=== PATIENT | male | born 1975 | race Caucasian/White ===

== ENCOUNTER 2017-11-21 07:59 | Outpatient (CLI) | payer BC, SELFPAY ==
[2017-11-21 10:34] LABS: Ferritin 115 ng/mL (8-388)
== END 2017-11-21 08:19 ==
PROVIDERS: PCP Emergency Medicine; Visit Provider Emergency Medicine
DX: E83.10 Disorder of iron metabolism, unspecified (principal)
CPT/HCPCS: 36415; 82728

== ENCOUNTER 2018-05-01 08:03 | Outpatient (CLI) | payer BC, SELFPAY ==
[2018-05-01 09:55] LABS: Ferritin 86 ng/mL (8-388)
== END 2018-05-01 08:23 ==
LOC: LBO 08:07 → LOS 14:55
PROVIDERS: PCP Emergency Medicine; Visit Provider Emergency Medicine
DX: E83.19 Other disorders of iron metabolism (principal)
CPT/HCPCS: 36415; 82728

== ENCOUNTER 2018-09-18 08:29 | Outpatient (CLI) | payer BC, SELFPAY ==
[2018-09-18 12:29] LABS: Ferritin 123 ng/mL (8-388)
== END 2018-09-18 08:49 ==
PROVIDERS: PCP Emergency Medicine; Visit Provider Emergency Medicine
DX: E83.118 Other hemochromatosis (principal)
CPT/HCPCS: 36415; 82728

== ENCOUNTER 2018-12-17 10:21 | Outpatient (CLI) | payer BC, SELFPAY ==
[2018-12-17 13:45] LABS: Ferritin 83 ng/mL (8-388)
== END 2018-12-17 10:41 ==
PROVIDERS: PCP Emergency Medicine; Visit Provider Emergency Medicine
DX: E83.19 Other disorders of iron metabolism (principal)
CPT/HCPCS: 36415; 82728

== ENCOUNTER 2019-04-29 11:26 | Outpatient (CLI) | payer BC, SELFPAY ==
[2019-04-29 13:53] LABS: Ferritin 107 ng/mL (26-388)
== END 2019-04-29 11:46 ==
PROVIDERS: PCP Emergency Medicine; Visit Provider Emergency Medicine
DX: E83.10 Disorder of iron metabolism, unspecified (principal)
CPT/HCPCS: 36415; 82728

== ENCOUNTER 2019-12-19 02:38 | Outpatient (CLI) | payer BC, SELFPAY ==
[2019-12-19 13:52] LABS: Ferritin 98 ng/mL (26-388)
== END 2019-12-19 02:58 ==
PROVIDERS: PCP Emergency Medicine; Visit Provider Emergency Medicine
DX: E83.10 Disorder of iron metabolism, unspecified (principal)
CPT/HCPCS: 36415; 82728

== ENCOUNTER 2020-01-29 11:08 | Outpatient (CLI) | payer BC, SELFPAY ==
[2020-02-01 13:52] LABS: Patient Race White; SARS-CoV-2 RNA Undetected (Undetected); SARS-CoV-2 Specimen Source Nasal
== END 2020-01-29 11:28 ==
PROVIDERS: PCP Emergency Medicine; Visit Provider Emergency Medicine
DX: J02.9 Acute pharyngitis, unspecified (principal); M79.18 Myalgia, other site
CPT/HCPCS: U0003

== ENCOUNTER 2020-06-03 03:40 | Outpatient (CLI) | payer BC, SELFPAY ==
[2020-06-03 13:08] LABS: Ferritin 107 ng/mL (26-388)
== END 2020-06-03 03:41 | disposition home or self-care (01) ==
LOC: LBO 03:40
PROVIDERS: PCP Emergency Medicine; Visit Provider Emergency Medicine
DX: E83.10 Disorder of iron metabolism, unspecified (principal)
CPT/HCPCS: 36415; 82728

== ENCOUNTER 2020-11-19 03:02 | Outpatient (CLI) | payer BC, SELFPAY ==
[2020-11-19 10:46] LABS: Ferritin 120 ng/mL (26-388)
== END 2020-11-19 03:03 | disposition home or self-care (01) ==
LOC: LBO 03:02
PROVIDERS: PCP Emergency Medicine; Visit Provider Emergency Medicine
DX: E83.118 Other hemochromatosis; E83.10 Disorder of iron metabolism, unspecified
CPT/HCPCS: 36415; 82728

== ENCOUNTER 2021-01-14 02:23 | Outpatient (CLI) | payer BC, SELFPAY ==
[2021-01-14 15:28] LABS: Ferritin 75 ng/mL (26-388)
== END 2021-01-14 02:24 | disposition home or self-care (01) ==
LOC: LBO 02:23
PROVIDERS: PCP Emergency Medicine; Visit Provider Emergency Medicine
DX: E83.10 Disorder of iron metabolism, unspecified (principal)
CPT/HCPCS: 36415; 82728

== ENCOUNTER 2021-04-02 04:40 | Outpatient (CLI) | payer BC, SELFPAY ==
[2021-04-02 12:17] LABS: Ferritin 94 ng/mL (26-388)
== END 2021-04-02 04:41 | disposition home or self-care (01) ==
LOC: LBO 04:41
PROVIDERS: PCP Emergency Medicine; Visit Provider Emergency Medicine
DX: E83.118 Other hemochromatosis (principal)
CPT/HCPCS: 36415; 82728

== ENCOUNTER 2021-09-03 03:19 | Outpatient (CLI) | payer BC, SELFPAY ==
--- OUTSIDE RECORDS SUMMARY | 2021-09-03 03:24 | XMS_ITS | Encounter Summary ---
:1975 Author Organization [facility] [place] [address] Care Team Providers Name Role Phone AkiraHarshad everett Primary Care Provider Reason for Visit Reason Comments Schedule Office Case Encounter Details Date Type Department Care Team Description 04/26/2012 Office Visit Hematology and Liam Malin Hemochro matosis (Primary Oncology at [facility] Dx) Formerly [facility] [address] [place] H[place]ATOLOGY/ONCOLO [id number] GY-COAGULATION [phone] DEPT. [place], [place] [address] Social History Tobacco Use Types Packs/Day Years Used Date Never Smoker Sex Assigned at Date Recorded Not on file documented as of this encounter Last Filed Vital Signs Vital Sign Reading Time Taken Comments Blood Pressure 128/85 04/26/2012 10:34 AM EST Pulse 55 04/26/2012 10:34 AM EST Temperature 36.6 ??C (97.9 ??F) 04/26/2012 10:34 AM EST Respiratory Rate 16 04/26/2012 10:34 AM EST Oxygen Saturation 100% 04/26/2012 10:34 AM EST Inhaled Oxygen Concentration - - Weight 77.5 kg (170 lb 13.7 oz) 04/26/2012 10:34 AM EST Height 172.7 cm (5' 7.99) 04/26/2012 10:34 AM EST Body Mass Index 25.98 04/26/2012 10:34 AM EST documented in this encounter Patient Instructions Patient InstructionsLiam Malin MD - 04/26/2012 12:34 PM EST Your ferritin at home on April 04, 2012 was 436.It is highly likely, especially with your family history, that you have one or two genes for hemochromatosis.Today we will re-check you ferritin and iron levels, your blood counts and run the test for the hemochromatosis gene. You and Dr Champion will get a letter with the results. You should contact Dr Champion about getting started on phlebotomies. I suggest having one unit remover about once per week for 5 weeks. Removal of one unit should drop the ferritin by about 50, so removing 5 units should drop the level by about 250 resulting in a ferritin of about 186. This does notneed to be measured. Rather, have a repeat ferritin in about 3 months to see where you are. Have more phlebotomies so that the resulting ferritin falls between about 25 and 75 (about 50 average) which is the minimal risk range. See if Dr Champion will put a standing order in for a ferritin thereafter. Keep a diary of phlebotomies and ferritin levels. Keep the handouts from today for future reference. Practice the iron restricted diet. We can see youhere in about 6 months to see how things are going.An order will be in for a ferritin, so please tryto arrive about 2 hours before the appointment to have the ferritin done for discussion at your appointment. 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 Harshad Champion of [facility] for evaluation for hemochromatosis. Adam appeared in Dr. Champion's office for a general checkup and nonspecific complaints and mentioned that he has a positive family history for hemochromatosis. His paternal grandfather is said to have had this diagnosis made and to have had diabetes. He at an unknown age after a fall down stairs that resulted in a lower extremity fracture that he did not survive, having suddenly. His father is alive and had a diagnosis of hemochromatosis made four or five years ago. He was told that he is a carrier by which Adam understands that he has one gene. His paternal aunt and her son (his cousin) are also described as having hemochromatosis, and his cousin is undergoing weekly blood draws at this time. Adam basically feels well. He was provided with a number of handouts, one of which was a list of clinical manifestations of hemochromatosis. He has none of these at this time. His body mass index today is 26, and his blood pressure is 128/85. He takes no medications. 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 He has never been contacted about any abnormality that might have existed over the past years. He has a drink of alcohol about once or twice a week. He has never been a blood donor or had a blood transfusion. He and his have cast iron cookware, but they use them only occasionally. He has been a daily multivitamin taker in the past, but this has been intermittent and he has not taken vitamins recently. He states that when he did take vitamins they were for men. He has red meat on average three to four times per week. He loves shellfish and especially muscles. He has a 2-year-old son whom he is concerned about because of the possibility of genetic transmission. Based upon his family history, Adam had blood testing at home dated April 04, 2012. His ferritin was 436, and his transferrin was 35% saturated. His serum iron was normal at 86. I spent 70 minutes with the patient, all of which was in consultation. During this time, we reviewed clinical manifestations of hemochromatosis, none of which he has. We reviewed curves showing the population trends in serum ferritin levels by age and sex. His ferritin of 436 would be about two and a half times higher than the population mean for males of his age. We reviewed the potential genotypes and what their significance might be. His hemochromatosis genotype will be determined based on blood testing today. We will also perform a confirmatory ferritin, serum iron and total iron-binding capacity, and CBC. The assumption is that he has not had abnormal liver function in the past that may warrant evaluation for other diseases, such as hepatitis or fatty liver disease. We reviewed the iron-restricted diet, which is based upon the Mediterranean diet. He was given a publication that illustrates the ability of the iron-restricted diet to control ferritin levels in the lower range associated with improved outcomes in diabetics with marginal renal function. This paper was given to illustrate the value of the diet for the years to come. This concept was emphasized, and the purpose of testing and proceeding with treatment based on today's visit was discussed. The idea of long-term disease prevention was emphasized. We discussed the fact the removal of 1 unit of blood should reduce the ferritin by about 50. He was advised to contact Dr. Champion's office upon return home and to proceed with 1 unit phlebectomies times five for starters. This should drop his ferritin into the range of approximately 186. He should have a ferritin performed at home in three months to determine his steady state and then to have additional phlebotomies as necessary to drop his ferritin by decrements of 50 to arrive at a mila ferritin of between 25 and 75. This would establish an optimal baseline level. We discussed the concept of self care in the future. He was asked to transmit the name of the try out person at the hospital in [facility] who might be performing his therapeutic phlebotomies. 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 The goal is to minimize iron intake and to settle upon the longest interval between therapeutic phlebotomies as possible. The emphasis was on the fact that his current state of well being is susceptible to preservation over the decades ahead. I mentioned to Adam that the letter from this visit may be delayed by as much as two weeks. Communication will eventually be with Dr. Champion and with Adam. We also discussed the need for testing in his son. He would be advised to avoid vitamins with iron at this time and to simply ingest a normal diet consisting of solids. His son was nursed for about 10 months following but is otherwise an active, healthy 2-year-old. Genetic testing can be deferred until some future date at such a time as a blood test is being drawn. documented in this encounter Plan of Treatment Not on filedocumented as of this encounter Procedures Procedure Name Priority Date/Time Associated Diagnosis Comme nts HFE MUT Routine 04/26/2012 1:04 PM Hemochromatosis Result s for this EST procedure are i n the results section. HFE MUTATION Routine 04/26/2012 1:04 PM Hemochromatosis EST DIFFERENTIAL, Routine 04/26/2012 1:04 PM Results for this AUTOMATED EST procedure are i n the results section. IRON AND TIBC Routine 04/26/2012 1:04 PM Hemochromatosis Resul ts for this EST procedure are i n the results section. CBC (WITH DIFF) Routine 04/26/2012 1:04 PM Hemochromatosis Res ults for this EST procedure are i n the results section. FERRITIN Routine 04/26/2012 1:04 PM Hemochromatosis Result s for this EST procedure are i n the results section. documented in this encounter Results Differential, Automated (04/26/2012 1:04 PM EST) P athologist Signature Neutrophils % 64.6 34.0 - CERNER 71.0 % MILLENNIUM Neutr Abs (ANC) 3.71 1.50 - CERNER 6.30 MILLENNIUM x10(3)/mcL Lymphocytes % 28.7 19.0 - CERNER 53.0 % MILLENNIUM Lymphocytes Abs 1.6 1.0 - 3.6 CERNER x10(3)/mcL MILLENNIUM Monocytes % 5.2 4.0 - 13.0 CERNER % MILLENNIUM Monocyte Abs 0.3 0.2 - 1.0 CERNER x10(3)/mcL MILLENNIUM Eosinophils % 1.2 0.0 - 7.0 CERNER % MILLENNIUM Eosinophils Abs 0.1 0.0 - 0.5 CERNER x10(3)/mcL MILLENNIUM Basophils % 0.3 0.0 - 2.0 CERNER % MILLENNIUM Basophils Abs 0.0 0.0 - 0.2 CERNER x10(3)/mcL MILLENNIUM Immature Gran % 0.00 0.00 - CERNER 0.66 % MILLENNIUM Comment: Immature granulocytes(IG's)percentage an d absolute count will include metamyelocytes, myelocytes, and promyelo cytes. Blood smears from CBCs yielding IG's will be scanned manually for concor dance. If this scan disagrees with the automated IG or if promyelocytes are not ed, a manual differential will be performed. Serenity Gran Abs 0.00 0.00 - 0.05 x10(3)/mcL CER NER MILLENNIUM Specimen Anatomical Collection Method Collection Time Receive d Time (Source) Location / / Volume Laterality Blood specimen 04/26/2012 1:04 PM 013 1:17 (specimen) EST PM EST Liam Malin MD HEMATOLOGY ORDERABLES Performing Organization Address City/State/ZIP [place] [address] GEMA GUTIERREZ HFE Mut (04/26/2012 1:04 PM EST) Component Value Ref Test Analysis Performed At [facility] gist Range Method Time Signature HFE Mutation RESULTS: ??NEGATIVE FOR BOTH THE C282Y AND H63D HFE ??MUTATIONS. ??Although this GEMA patient does not carry these mutations on either of his ch romosomes 6, this MILLENNIUM does NOT rule out hereditary hemochromatosis (see COMMENT). COMMENT: In the study by Tab et al. (A novel MHC class I-l damian gene in patients with hereditary hae mochromatosis. ??Nature Genetics 1996;13: 399-408), 83% of unrelated individuals with hereditary hemochromatosis (HH) were homozygous for the C282Y mut ation, ??5% were C282Y/H63D compound heterozygotes, and less than 1% ??were hete rozygous for the C282Y mutation only. ??Other studies have confirmed the high incidence of these mutations i n individuals with HH. Neither of these HFE ??mutations [facility] of individuals with hemochromatosis. This test provides information on the genetic basis for iron overload by detecting two missense mutat ions, C282Y and H63D, that occur commonly in Type I hereditary hemochromatosis (HFe). The gene frequency for C28 2Y and H63D is about 5 to 10%. Homozygosity, double heterozygosity, or hete rozygosity for these mutations account for about 70% to 80% of cases of classical HFe. These mutations cause graded severity of iron accumulation with ho mozygosity for C282Y being the strongest and heterozygosity for H63D the we akest. Other mutations, non-genetic iron excess and various pathophysiolo gic conditions interact with genotype to alter clinical disease phenotype. Disease-producing iron overload can occur with any genotype depend ing on the level and duration of iron exposure, and interacting variables (Damion shelby G. Genetic mechanisms and modifying factors in hereditary hemochro matosis. Fabiana Rev Gastroenterol Hepatol 2010;7:50-58). Genetic kellee sis assists diagnosis when expression of a clinical phenotype possibly due to excess iron is incomplete, for pre dicting future disease risk (e.g., in family members) or for explaining e levated levels of ferritin or % transferrin saturation. Referral is suggested for detailed clinico-pathologic correlation. METHOD: The regions of interest in the HFE gene (C282Y and H63D) are analyzed using [employer] pre -developed assays for SNP detection on an ANTONIO Prism 7500 Sequence Detection System. DNA is isolated from periphe ral blood and analyzed using primers and probes specific to the wild type and mutant sequences of each gene sequence of interest (C282Y and H63D) . This assay was performed usi ng analyte specific reagents which are regulated by the U.S. Food and Drug Administration. This test was develop ed and its performance characteristics determined by the Molecular Pathology Laboratory at [facility]. This test is used for clinical purposes an d should not be considered as investigational or for resea uk healthcare purposes. ??It has not been cleared or approved by the U.S. Food and Drug Administration. However, as a [employer] licensed laboratory, our facility is approved for such high complexity clinical testing. Comment: [VERIFIED DATE]05.05.12 Verified By:Concha Taveras MD Pathologist (Electronic Signature) Specimen Anatomical Collection Method Collection Time Receive d Time (Source) Location / / Volume Laterality Blood specimen 04/26/2012 1:04 PM 013 2:16 (specimen) EST PM EST Resulting Agency Comment Spec In Lab Liam Malin MD HEMATOLOGY ORDERABLES Performing Organization Address City/State/ZIP [place] [address] CERNER MILLENNIUM (ABNORMAL) CBC (with Diff) (04/26/2012 1:04 PM EST) athologist Signature WBC 5.8 4.0 - 10.0 CERNER x10(3)/mcL MILLENNIUM RBC 5.58 4.63 - 6.08 CERNER x10(6)/mcL MILLENNIUM Hemoglobin 16.4 13.7 - 17.5 CERNER gm/dL MILLENNIUM Hematocrit 47.0 40.0 - 51.0 CERNER % MILLENNIUM MCV 84.2 79.0 - 92.0 CERNER fL MILLENNIUM MCH 29.4 25.6 - 32.2 CERNER pg MILLENNIUM MCHC 34.9 32.0 - 36.5 CERNER gm/dL MILLENNIUM Platelets 116 (L) 145 - 370 CERNER x10(3)/mcL MILLENNIUM RDWSD 38.3 35.0 - 46.0 CERNER fL MILLENNIUM RDWCV 12.7 10.9 - 14.4 CERNER % MILLENNIUM MPV 10.1 9.0 - 12.0 CERNER fL MILLENNIUM Specimen Anatomical Collection Method Collection Time Receive d Time (Source) Location / / Volume Laterality Blood specimen 04/26/2012 1:04 PM 013 1:17 (specimen) EST PM EST Resulting Agency Comment Spec In Lab Liam Malin MD HEMATOLOGY ORDERABLES Performing Organization Address City/[facility]/ZIP Code Phon e Number [address] CERNER MILLENNIUM Iron and TIBC (04/26/2012 1:04 PM EST) athologist Signature Iron 62 45 - 160 CERNER mcg/dL MILLENNIUM TIBC 278 250 - 450 CERNER mcg/dL MILLENNIUM Iron Saturation 22 20 - 50 % CERNER MILLENNIUM Specimen Anatomical Collection Method Collection Time Receive d Time (Source) Location / / Volume Laterality Blood specimen 04/26/2012 1:04 PM 013 1:17 (specimen) EST PM EST Resulting Agency Comment Spec In Lab Liam Malin MD CHEMISTRY ORDERABLES Performing Organization Address City/[facility]/ZIP [facility] Phon e Number [address] CERNER MILLENNIUM (ABNORMAL) Ferritin (04/26/2012 1:04 PM EST) athologist Signature Ferritin 441 (H) 30 - 400 CERNER ng/mL MILLENNIUM Comment: Pediatric reference ranges not verified at [facility], interpret with caution. Reference ranges for females greater hugh n 50 years of age approach values for men, i.e., 30-400 ng/mL. Specimen Anatomical Collection Method Collection Time Receive d Time (Source) Location / / Volume Laterality Blood specimen 04/26/2012 1:04 PM 013 1:17 (specimen) EST PM EST Resulting Agency Comment Spec In Lab Liam Malin MD CHEMISTRY ORDERABLES Performing Organization Address City/State/[place] [address] [facility] documented in this encounter Visit Diagnoses Diagnosis Hemochromatosis - Primary Other hemochromatosis documented in this encounter Care Teams Forest Science Professor Relationship Specialty Start Date End Date Harshad Champion DO PCP - General 04/26/[address] [place] [address] documented as of this encounter
--- OUTSIDE RECORDS SUMMARY | 2021-09-03 03:24 | XMS_ITS | Clinical Summary ---
:1975 Author Organization [facility] [place] [address] Care Team Providers Name Role Phone Harshad Champion DO Primary Care Provider Allergies No known active allergies Medications No known medications Active Problems Problem Noted Date Hemochromatosis 04/26/2012 Social History Tobacco Use Types Packs/Day Years Used Date Never Smoker Sex Assigned at Date Recorded Not on file Last Filed Vital Signs Vital Sign Reading [...] Mass Index 25.98 04/26/2012 10:34 AM EST Plan of Treatment Health Maintenance Due Date Last Done Comments Covid-19 Vaccine (#1) 1978 HIV screen 1991 Hepatitis C Screening 1991 Lipid Screening 1991 Tdap adult 1992 Tetanus vaccine 1992 Colonoscopy 2018 Influenza (Flu) vaccine (1 of - Influenza standard 11/04/2020 series) Care Teams Aix Architect Relationship Specialty Start Date End Date Harshad Champion DO PCP - General 04/26/[address] [place] [address]
--- OUTSIDE RECORDS SUMMARY | 2021-09-03 03:24 | XMS_ITS | Encounter Summary ---
:1975 Author Organization [facility] [place] [address] Care Team Providers Name Role Phone Harshad Champion DO Primary Care Provider Encounter Details Date Type Department Care Team Description 05/09/2012 Orders Only Hematology and Liam Malin R, Iron ove rload (Primary Oncology at [facility] Dx) [facility] [place] [address] HEMATOLOGY/ONCOLOG [phone] Y-COAGULATION DEPT. [place], [place] [address] Social History Tobacco Use Types Packs/Day Years Used Date Never Smoker Sex Assigned at Date Recorded Not on file documented as of this encounter Plan of Treatment Not on filedocumented as of this encounter Visit Diagnoses Diagnosis Iron overload - Primary Other disorders of iron metabolism documented in this encounter Care Teams Musical Engineer Relationship Specialty Start Date End Date Harshad Champion DO PCP - General 04/26/[address] [place] [address] documented as of this encounter
[2021-09-03 14:28] LABS: Ferritin 110 ng/mL (26-388)
== END 2021-09-03 03:20 | disposition home or self-care (01) ==
LOC: LBO 03:19
PROVIDERS: PCP Nurse Practitioner Family; Visit Provider Emergency Medicine
DX: E83.118 Other hemochromatosis (principal)
CPT/HCPCS: 36415; 82728

== ENCOUNTER 2022-03-02 02:38 | Outpatient (CLI) | payer BC, SELFPAY ==
[2022-03-02 14:56] LABS: HCT 44.9 % (40.0-50.0); HGB 15.4 g/dL (13.5-17.5); MCH 28.3 pg (27.0-33.0); MCHC 34.3 % (32.0-36.0); MCV 83 fL (80-95); MPV 9.1 fL (8.0-11.0); Platelet Count 163 10^3/uL (130-400); RBC 5.44 10^6/uL (4.36-5.78); RDW 12.6 % (11.8-14.1); RDW-SD 37.8 fL; WBC 5.87 10^3/uL (4.4-10.8)
[2022-03-02 15:48] LABS: Ferritin 113 ng/mL (26-388)
== END 2022-03-02 02:39 | disposition home or self-care (01) ==
LOC: LBO 02:38
PROVIDERS: PCP Nurse Practitioner Family; Visit Provider Nurse Practitioner Family
DX: E83.118 Other hemochromatosis (principal)
CPT/HCPCS: 36415; 85027; 82728

== ENCOUNTER 2022-07-07 01:41 | Outpatient (CLI) | payer BC, SELFPAY ==
[2022-07-07 15:07] LABS: Ferritin 180 ng/mL (26-388)
== END 2022-07-07 01:42 | disposition home or self-care (01) ==
PROVIDERS: PCP Nurse Practitioner Family; Visit Provider Nurse Practitioner Family
DX: E83.118 Other hemochromatosis (principal)
CPT/HCPCS: 36415; 82728

== ENCOUNTER 2022-08-09 03:12 | Outpatient (CLI) | payer BC, SELFPAY ==
[2022-08-09 15:23] LABS: Abs Immature Grans 0.02 10^3/uL (0.0-0.06); Absolute Basophil Count 0.04 10^3/uL (0.0-0.2); Absolute Eosinophil Count 0.15 10^3/uL (0.0-0.7); Absolute Lymphocyte Count 1.56 10^3/uL (1.2-3.4); Absolute Monocyte Count 0.35 10^3/uL (0.1-0.8); Absolute Neutrophil Count 3.51 10^3/uL (1.2-6.7); Basophils % 0.7; Eosinophils % 2.7; HCT 42.7 % (40.0-50.0); HGB 14.9 g/dL (13.5-17.5); Immature Grans % 0.4; Lymphocytes % 27.7; MCH 28.8 pg (27.0-33.0); MCHC 34.9 % (32.0-36.0); MCV 82 fL (80-95); MPV 9.3 fL (8.0-11.0); Monocytes % 6.2; Neutrophils % 62.3; Platelet Count 150 10^3/uL (130-400); RBC 5.18 10^6/uL (4.36-5.78); RDW 12.5 % (11.8-14.1); RDW-SD 37.8 fL; WBC 5.63 10^3/uL (4.4-10.8)
[2022-08-09 16:20] LABS: Iron 52 ug/dL (65-175); Total Iron Binding Capacity 288 ug/dL (250-450)
[2022-08-09 16:33] LABS: Calculated LDL 120 mg/dL (<100); Cholesterol 222 mg/dL (<200); Ferritin 149 ng/mL (26-388); HDL Cholesterol 42 mg/dL (40-60); Triglyceride 303 mg/dL (<150)
[2022-08-11 11:35] LABS: Transferrin 227 mg/dL (201-352)
== END 2022-08-09 03:13 | disposition home or self-care (01) ==
PROVIDERS: PCP Nurse Practitioner Family; Visit Provider Nurse Practitioner Family
DX: E83.118 Other hemochromatosis (principal); Z13.220 Encounter for screening for lipoid disorders
CPT/HCPCS: 36415; 80061; 82728; 83540; 83550; 84466; 85025

== ENCOUNTER 2022-12-12 05:05 | Outpatient (CLI) | payer BC, SELFPAY ==
[2022-12-12 16:28] LABS: HCT 42.4 % (40.0-50.0); HGB 14.8 g/dL (13.5-17.5); MCH 28.2 pg (27.0-33.0); MCHC 34.9 % (32.0-36.0); MCV 81 fL (80-95); MPV 9.4 fL (8.0-11.0); Platelet Count 161 10^3/uL (130-400); RBC 5.24 10^6/uL (4.36-5.78); RDW 12.7 % (11.8-14.1); RDW-SD 37.1 fL; WBC 6.08 10^3/uL (4.4-10.8)
[2022-12-12 17:30] LABS: Ferritin 163 ng/mL (26-388)
== END 2022-12-12 05:06 | disposition home or self-care (01) ==
PROVIDERS: PCP Nurse Practitioner Family; Visit Provider Nurse Practitioner Family
DX: E83.118 Other hemochromatosis (principal)
CPT/HCPCS: 36415; 85027; 82728

== ENCOUNTER 2023-01-12 02:21 | Outpatient (CLI) | payer BC, SELFPAY | END 2023-01-12 02:22 | disposition home or self-care (01) | LOC: LBO 02:21 | PROVIDERS: PCP Nurse Practitioner Family; Visit Provider Nurse Practitioner Family | DX: R53.83 Other fatigue (principal) | CPT/HCPCS: 36415; 84443 ==

== ENCOUNTER 2023-03-31 02:01 | Outpatient (CLI) | payer BC, SELFPAY ==
[2023-03-31 10:15] LABS: Calculated LDL 122 mg/dL (<100); Cholesterol 197 mg/dL (<200); Ferritin 167 ng/mL (26-388); HDL Cholesterol 52 mg/dL (40-60); Triglyceride 117 mg/dL (<150)
== END 2023-03-31 02:02 | disposition home or self-care (01) ==
LOC: LBO 02:01
PROVIDERS: PCP Nurse Practitioner Family; Visit Provider Nurse Practitioner Family
DX: E78.5 Hyperlipidemia, unspecified (principal); E83.118 Other hemochromatosis
CPT/HCPCS: 36415; 80061; 82728

== ENCOUNTER 2023-05-26 08:42 | Day surgery (SDC) | payer BC, SELFPAY ==
--- NOTE | 2023-05-25 19:27 | W.PM.DSUDISC ---
Date of service: 05/26/23 Time of Service: 12:30 Discharge Plan Disposition Patient Disposition: Home Condition: Good Discharge Details Reason For Visit: screening colonoscopy Attending Provider: Silvestre Torres Primary Care Provider: Constantino Rodriguez Home Meds and New Rx's Prescriptions: Continued albuterol sulfate 90 mcg/actuation HFA aerosol inhaler 2 inh inhalation Q6H Qty: 18 0RF (DME) Aerochamber MV Spacer See Rx Instructions .Route Qty: 1 0RF Rx Instructions: As directed ibuprofen [Motrin IB] 200 MG tablet 1 tab PO Q4H PRN losartan 50 mg tablet 50 mg PO DAILY Qty: 90 3RF sertraline 100 mg tablet 100 mg PO DAILY Qty: 90 3RF Discontinued bisacodyl [Dulcolax (bisacodyl)] 5 mg tablet,delayed release (DR/EC) 5 mg PO ONCE Qty: 4 0RF Rx Instructions: Colonoscopy Bowel Prep- Per Instructions polyethylene glycol 3350 17 gram/dose powder 238 g PO ONCE Qty: 238 0RF Rx Instructions: Colonoscopy Bowel Prep- Per Instructions Discharge Instructions Instructions: Colorectal Polyps (GEN) Additional Instructions: Adam, we were able to complete your colonoscopy today without any difficulty. Your prep was excellent, and I could see everything just fine. They did remove 2 small areas that I suspect may be polyps. I will have the sent off for testing. Once I have that report, I will be in touch with my recommendations for your next colonoscopy. Hopefully I am wrong, and knees are just normal tissue, in which case it would be a 10-year follow-up. If you have any questions at all in the meantime, please do not hesitate to ask at any point. 1. If tolerated, consume a soft, low fiber diet for 1-2 days. [address] Do not drive, drink alcohol, operate machinery, make critical decisions, or do activities that require coordination or balance for 24 hours. 3. Because air was put into your colon during the procedure, expelling air from your rectum (passing gas or farting) is normal. 4. You may not have a bowel movement for 1-3 days because of the colonoscopy prep. This is normal. 5. Go directly to the emergency room if you notice any of the following: Develop chills (warm to touch), or if you have a thermometer and your temperature is above 101 Difficulty breathing or difficultly swallowing Persistent vomiting Severe abdominal pain, other than gas cramps Severe chest pain Black, tarry stools Any bleeding ? exceeding one tablespoon 6. Call your physician if the site where your intravenous was started becomes red, swollen, painful, and warm to touch. 7. Your physician has reviewed your pre-procedure medications. Please continue to take those medications as previously ordered. You will be given specific information/education regarding any changes to your medications before leaving. Activity:: Activity as Tolerated Diet:: As Tolerated Discharge Orders Discharge Orders: Discharge Order (Routine); Ordered 05/25/23 Ordered By: Silvestre Torres DS: Diagnosis Discharge Diagnosis (1) Encounter for screening colonoscopy: Status: Acute Asessment and Plan: Follow-up polypectomy results
--- NOTE | 2023-05-25 19:28 | W.COLOREPORT ---
Date of service: 05/26/23 Time of Service: 12:31 Colonoscopy Report Date of procedure: 05/26/23 Pre-op diagnosis general: screening colonoscopy Post-op diagnosis procedure note: other (Colon polyps) Procedure: colonoscopy with polypectomy Surgeon: Silvestre Torres Anesthesia Type: General:No Airway Estimated blood loss (mL): 5 Pathology: other (0.25 cm cecal polyp, 0.25 cm polyp at 30 cm) Complications: None Disposition: same day Indications: Adam is a 48 year old man who needs a screening colonoscopy Prep: Miralax/Dulcolax Procedure Start Time: 12:09 Procedure End Time: 12:22 Retraction Time: 9 Findings: 0.25 cm cecal polyp, 0.25 cm polyp at 30 cm Procedure Description: After the induction of monitored anesthetic care, and with the patient in left lateral decubitus position, I began by performing an external anorectal exam.? Perineum and skin were normal, as was the anal verge.? There was no evidence of external hemorrhoids.? Next, I performed a digital rectal exam.? I did not appreciate any abnormal findings.? Next, I advanced a colonoscope into the rectal vault.? I performed retroflexion.? This appeared normal.? Using insufflation, I then advanced the colonoscope beyond the rectal folds and into the sigmoid colon before advancing towards the cecum.? The quality of the prep was outstanding.? The scope was noted to be in the cecum by identification of the ileocecal valve and appendiceal orifice.? Just adjacent to the lumen of the appendix was a small area that appeared consistent with a sessile polyp. Narrowband imaging was used to assist with analysis. I removed this with cold forceps without any issue. There was less than 0.25 cm in size. I then began withdrawing the colonoscope using repeated irrigation as necessary for full evaluation of the colonic mucosa. ?Around 30 cm from the anal verge was another polyp. This was about 0.25 cm in its greatest dimension. This was also quite flat, and did have some features that appeared more consistent with no inflammatory polyp. However, to be safe, I did remove this with cold forceps as well. There was minimal bleeding here. Once the scope was withdrawn to the level of the rectum, great care was taken to examine portions of the rectal folds.? Finally, the scope was withdrawn and the patient was brought to the same-day surgery recovery unit as the anesthetic wore off. ?The findings and instructions were shared with the patient prior to discharge. Fitzpatrick Bowel Prep Fitzpatrick Bowel Prep Right Colon: 3 Left Colon: 3 Transverse Colon: 3 Total Score: 9
[2023-05-26 09:24] VITALS: BP 139/85; PULSE 78; RESP 16; TEMP 36; O2SAT 100
[2023-05-26] MEDS: Lactated Ringers 1,000 ML 80 ML IV (09:55)
--- NOTE | 2023-05-26 11:36 | W.ANESPRE ---
General Info Date of Service Date Performed: 05/26/23 Height: 5 ft 7 in Weight: 92.7 kg Body Mass Index (BMI): 32.0 Surgical Procedure: Operation Date: 05/26/23 12:05 Proposed Procedure Side Surgeon nagi Torres MD Meds Allergies and Home Medications Allergies Allergy/AdvReac Type Severity Reaction Status Date / Time No Known Drug Allergies Allergy Other (See Verified 05/26/23 09:32 Comment) Home Medication Medication Instructions Recorded ibuprofen 200 mg tablet (Motrin IB) 1 tab PO Q4H PRN 06/14/12 albuterol sulfate 90 mcg/actuation 2 inh inhalation Q6H shortness of 11/23/22 aerosol inhaler breath or wheezing #18 grams inhalational spacing device #1 ea 11/23/22 (Aerochamber MV spacer) losartan 50 mg tablet 50 mg PO DAILY #90 tabs 03/22/23 sertraline 100 mg tablet 100 mg PO DAILY #90 tabs 05/24/23 Current Visit Medications: Current Medications Generic Name Dose Route Start Last Admin Trade Name Freq PRN Reason Stop Dose Admin Hyoscyamine Sulfate 0.125 mg 05/25/23 19:29 Hyoscyamine 0.125 Mg Sl/Oral/Chew SL 06/24/23 19:28 DIRECTED PRN Ringer's Solution 1,000 mls @ 80 mls/hr 05/26/23 06:00 05/26/23 09:55 IV 06/24/23 23:59 80 mls/hr INFUSION BALA Administration IV Miscellaneous Supplies 1 each 05/26/23 06:00 Iv Access IV 06/24/23 23:59 DIRECTED BALA Ondansetron HCl 4 mg 05/25/23 19:29 Ondansetron 4 Mg/2 Ml Vial IVP 06/24/23 19:28 Q4H PRN PRN Nausea / Vomiting Sodium Chloride 0 ml 05/26/23 06:00 Normal Saline Flush 10 Ml Syr IV 06/24/23 23:59 PRN PRN Sodium Chloride 0 ml 05/26/23 06:00 Normal Saline 10 Ml Vial IJ 06/24/23 23:59 DIRECTED PRN Sterile Water 0 ml 05/26/23 06:00 Water,Injection,Sterile 10 Ml Vial IJ 06/24/23 23:59 DIRECTED PRN PFSH Active Problems Active Problems: Problem Status Onset Code Encounter for screening colonoscopy Z12.11 Hyperlipidemia E78.5 Fatigue R53.83 Rhinosinusitis J31.0, J32.9 Anxiety F41.9 Other 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.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 Surgical History Surgical History History of appendectomy Tobacco Smoking/Tobacco Use Status: Never Passive smoking exposure: No Alcohol Alcohol Intake: current Alcohol intake frequency: a few times a week Alcohol type: hard liquor Substance Use Substance use: Never Substance use type: does not use Vital Signs and Lab Results Vital Signs Most Recent Vital Signs in EMR: Most Recent Vital Signs Temp Pulse Resp BP Pulse Ox 36.0 C L 78 16 139/85 100 05/26/23 09:24 05/26/23 09:24 05/26/23 09:24 05/26/23 09:24 05/26/23 09:24 Lab Results Blood Type / Crossmatch: No Data to Display Complete Blood Count: No Data to Display Complete Metabolic Panel: No Data to Display Liver Function Panel: No Data to Display Coagulation Panel: No Data to Display Cardiac Panel: No Data to Display Arterial Blood Gas: No Data to Display Venous Blood Gas: No Data to Display Pancreas Panel: No Data to Display Thyroid Panel: No Data to Display Infectious Disease: No Data to Display Blood Cultures: No Data to Display Toxicology Panel: No Data to Display Anesthesia Assessment and Plan Anesthesia History Personal History: No History of Anesthesia Complications Family History: No Family History of Anesthesia Complications Exercise Tolerance Exercise Tolerance: Metabolic Equivalents>4 Pertinent Negatives Pertinent Negatives: No Symptoms of GERD, No Major Cardiovascular Symptoms or Complaints, No Major Pulmonary Symptoms or Complaints and No History of CVA/TIA Cardiac & Pulmonary Exam Cardiac Exam: Normal S1/S2 Heart Sounds Pulmonary Exam: Clear Bilateral Breath Sounds Implantable Cardiac Device Does patient have a Pacemaker or an ICD?: No Airway Exam Known Difficult Airway: No Mallampati Class: 1 Mouth Opening: Normal (> 3cm) Thyromental Distance: Greater than 3 cm Neck Range of Motion: Full ROM Neck Circumference: Normal Teeth Condition: Normal Dentition ASA Classification ASA Score: ASA 2 Emergency Case?: No NPO Status NPO Status: NPO Clears >2 hours, Solids >8 hours Anesthesia Plan Resuscitation Status: Full Code Anesthesia Technique: General Anesthesia Airway Planned: Natural Airway Monitors Used: Standard Monitors
[2023-05-26 11:41] VITALS: BMI 32.0
--- NOTE | 2023-05-26 12:14 | BOWEL_PTH ---
PATIENT: Adam Vogle LOC: [facility] U#:[id number] AGE/SX: 48/M ROOM: RE05/26/[address]: Silvestre Torres MD : 1975 BED: DIS: 05/26/2023 SPEC #: [id number] RECD: 05/26/23 13:20 STATUS: ADRIA REQ #: [id number] ANNA MARIE: 05/26/23 12:[address]: Silvestre Torres DEPT: Surgical Specimen RECD BY: Dominique De Leon ENTERED: 05/26/23 13:21 SP TYPE: Bowel OTHR DR: Constantino Rodriguez, ROOFER APPRENTICE Tissues: 1 - BIOPSY BOWEL 2 - BIOPSY BOWEL Procedures: GROSS AND MICRO LEVEL 4 Comments: [id number]
[2023-05-26 12:30] VITALS: BP 128/97; PULSE 78; RESP 16; TEMP 36.3; O2SAT 98
[2023-05-26 12:31] VITALS: BP 126/92; PULSE 88; RESP 16; TEMP 36.4; O2SAT 97
[2023-05-26 12:46] VITALS: BP 142/95; PULSE 85; RESP 16; TEMP 36.6; O2SAT 98
--- NOTE | 2023-05-26 13:04 | W.ANESPOSTOP ---
Postoperative Evaluation Date, Time and Location Date Performed: 05/26/23 Time Performed: 12:46 Patient Location: Day Surgery Unit Vital Signs Most Recent Imported Vital Signs: Most Recent Vital Signs Temp Pulse Resp BP Pulse Ox 36.6 C 85 16 142/95 H 98 05/26/23 12:46 05/26/23 12:46 05/26/23 12:46 05/26/23 12:46 05/26/23 12:46 Pain Score Most Recent Pain Score: Most Recent Pain Score Pain Level 0 05/26/23 12:46 Assessment Mental Status: Awake (Alert & Oriented to Patient Baseline) Airway and Respiratory Function: Patent airway with normal (patient baseline) respiratory exam Cardiovascular Function: Hemodynamically Stable Hydration Status: Adequately Hydrated Nausea & Vomiting: No Nausea or Vomiting Pain: Pt. Denies Any Pain Peripheral Nerve Block: Patient did not receive a nerve block
== END 2023-05-26 13:05 | disposition home or self-care (01) ==
LOC: SUR 08:45
PROVIDERS: PCP Nurse Practitioner Family; Visit Provider Surgery
PROC: 0DJD8ZZ Inspection of Lower Intestinal Tract, Via Natural or Artificial Opening Endoscopic (ICD-10-PCS; CPT 45378; principal; 2023-05-26 12:00)
DX: Z12.11 Encounter for screening for malignant neoplasm of colon (principal); K63.5 Polyp of colon; K63.89 Other specified diseases of intestine
CPT/HCPCS: 45380; 88305; J2001; J2704

== ENCOUNTER 2023-08-30 01:41 | Outpatient (CLI) | payer BC, SELFPAY ==
[2023-08-30 10:55] LABS: Abs Immature Grans 0.04 10^3/uL (0.0-0.06); Absolute Basophil Count 0.05 10^3/uL (0.0-0.2); Absolute Eosinophil Count 0.18 10^3/uL (0.0-0.7); Absolute Lymphocyte Count 1.48 10^3/uL (1.2-3.4); Absolute Monocyte Count 0.35 10^3/uL (0.1-0.8); Absolute Neutrophil Count 3.34 10^3/uL (1.2-6.7); Basophils % 0.9 %; Eosinophils % 3.3 %; HCT 45.6 % (40.0-50.0); HGB 15.7 g/dL (13.5-17.5); Immature Grans % 0.7 %; Lymphocytes % 27.2 %; MCH 28.9 pg (27.0-33.0); MCHC 34.4 % (32.0-36.0); MCV 84 fL (80-95); MPV 9.5 fL (8.0-11.0); Monocytes % 6.4 %; Neutrophils % 61.5 %; Platelet Count 141 10^3/uL (130-400); RBC 5.43 10^6/uL (4.36-5.78); RDW 12.5 % (11.8-14.1); RDW-SD 38.2 fL; WBC 5.44 10^3/uL (4.4-10.8)
[2023-08-30 12:08] LABS: Ferritin 196 ng/mL (26-388)
[2023-08-31 09:36] LABS: Transferrin 228 mg/dL (201-352)
== END 2023-08-30 01:42 | disposition home or self-care (01) ==
LOC: LBO 01:41
PROVIDERS: PCP Nurse Practitioner Family; Visit Provider Nurse Practitioner Family
DX: E83.118 Other hemochromatosis (principal)
CPT/HCPCS: 36415; 82728; 84466; 85025

== ENCOUNTER 2024-02-07 02:33 | Outpatient (CLI) | payer BC, SELFPAY ==
[2024-02-07 15:54] LABS: Calculated LDL 99 mg/dL (<100); Cholesterol 198 mg/dL (<200); Ferritin 235 ng/mL (26-388); HDL Cholesterol 49 mg/dL (40-60); Triglyceride 251 mg/dL (<150)
[2024-02-07 16:01] LABS: Hemoglobin A1C 5.5 % (<5.7)
[2024-02-08 09:12] LABS: PSA, Screening 5.9 ng/mL (<=3.5)
== END 2024-02-07 02:34 | disposition home or self-care (01) ==
PROVIDERS: PCP Nurse Practitioner Family; Visit Provider Nurse Practitioner Family
DX: Z13.220 Encounter for screening for lipoid disorders (principal); E78.5 Hyperlipidemia, unspecified; Z12.5 Encounter for screening for malignant neoplasm of prostate; E83.118 Other hemochromatosis; Z13.1 Encounter for screening for diabetes mellitus
CPT/HCPCS: 36415; 80061; 84153; 82728; 83036

== ENCOUNTER 2024-03-25 03:12 | Outpatient (CLI) | payer BC, SELFPAY ==
[2024-03-25 09:32] LABS: Ferritin 182 ng/mL (26-388)
[2024-03-25 17:41] LABS: PSA, Diagnostic 3.6 ng/mL (<=3.5)
[2024-03-26 08:39] LABS: Transferrin 232 mg/dL (201-352)
[2024-03-29 16:42] LABS: Testosterone, Total 453 ng/dL (240-950)
== END 2024-03-25 03:13 | disposition home or self-care (01) ==
LOC: LBO 03:12
PROVIDERS: PCP Nurse Practitioner Family; Visit Provider Nurse Practitioner Gerontology
DX: R97.20 Elevated prostate specific antigen [PSA] (principal); R53.83 Other fatigue; E83.118 Other hemochromatosis; E83.10 Disorder of iron metabolism, unspecified
CPT/HCPCS: 36415; 84403; 82728; 84153; 84466

== ENCOUNTER 2024-09-25 02:25 | Outpatient (CLI) | payer BC, SELFPAY ==
[2024-09-25 10:04] LABS: Ferritin 201 ng/mL (26-388)
[2024-09-25 10:26] LABS: Iron 80 ug/dL (65-175)
[2024-09-25 17:50] LABS: PSA, Diagnostic 3.2 ng/mL (<=3.5)
[2024-09-26 09:39] LABS: Transferrin 227 mg/dL (201-352)
== END 2024-09-25 02:26 | disposition home or self-care (01) ==
PROVIDERS: PCP Nurse Practitioner Family; Visit Provider Nurse Practitioner Gerontology
DX: E83.118 Other hemochromatosis (principal); N40.1 Benign prostatic hyperplasia with lower urinary tract symptoms; N13.8 Other obstructive and reflux uropathy; R97.20 Elevated prostate specific antigen [PSA]
CPT/HCPCS: 36415; 82728; 83540; 84153; 84466

== ENCOUNTER 2025-01-10 13:19 | Outpatient (CLI) | payer BC, SELFPAY ==
[2025-01-10 17:38] LABS: Hemoglobin A1C 5.4 % (<5.7)
[2025-01-10 17:55] LABS: Anion Gap 10.3 mmol/L (3-11); BUN 13 mg/dL (7-18); CO2 26.7 mmol/L (21.0-32.0); Calcium 9.0 mg/dL (8.5-10.1); Chloride 103 mmol/L (98-107); Cholesterol 194 mg/dL (<200); Ferritin 220 ng/mL (26-388); Glucose 83 mg/dL (74-106); HDL Cholesterol 41 mg/dL (>or=40); Potassium 3.7 mmol/L (3.5-5.1); Sodium 140 mmol/L (136-145)
[2025-01-10 18:42] LABS: Iron 71 ug/dL (65-175)
[2025-01-13 11:42] LABS: Transferrin 244 mg/dL (201-352)
[2025-01-13 11:56] LABS: Lyme Ab w Rflx to Lyme Confirm Negative (Negative)
[2025-01-13 14:13] LABS: B. miyamotoi PCR Negative (Negative); Babesia divergens/MO-1 Negative (Negative); Ehrlichia muris eauclairensis Negative (Negative)
== END 2025-01-10 13:20 | disposition home or self-care (01) ==
LOC: LOS 13:20
PROVIDERS: PCP Nurse Practitioner Family; Visit Provider Nurse Practitioner Family
DX: E83.118 Other hemochromatosis (principal); Z13.1 Encounter for screening for diabetes mellitus; Z13.220 Encounter for screening for lipoid disorders; I10 Essential (primary) hypertension; W57.XXXA Bitten or stung by nonvenomous insect and other nonvenomous arthropods, initial encounter
CPT/HCPCS: 36415; 80048; 80061; 87798; 82728; 83036; 83540; 84466; 86618

== ENCOUNTER 2025-02-05 14:41 | Outpatient (CLI) | payer BC, SELFPAY ==
[2025-02-05 23:14] LABS: PSA, Screening 4.4 ng/mL (<=3.5)
== END 2025-02-05 14:42 | disposition home or self-care (01) ==
LOC: LBO 14:44
PROVIDERS: PCP Nurse Practitioner Family; Visit Provider Nurse Practitioner Gerontology
DX: R39.9 Unspecified symptoms and signs involving the genitourinary system (principal); N40.1 Benign prostatic hyperplasia with lower urinary tract symptoms; N13.8 Other obstructive and reflux uropathy; R97.20 Elevated prostate specific antigen [PSA]
CPT/HCPCS: 36415; 84153